=== PATIENT | female | born 1995 | race African-American/Black ===

== ENCOUNTER 2017-02-04 10:46 | Inpatient (IN) ==
[2017-02-04] MEDS ORDERED: ONDANSETRON 4 MG/2 ML VIAL IV PRN ×2 (11:08→16:00)
[2017-02-04] MEDS ORDERED: MEPERIDINE 50 MG/1 ML VIAL IV PRN (11:08)
[2017-02-04] MEDS ORDERED: BUTORPHANOL 2 MG/ML VIAL IV PRN (11:08)
[2017-02-04] MEDS ORDERED: AMPICILLIN INJ 2,000 MG in SODIUM CHLORIDE 0.9% 100 ML IV ONE (11:10)
[2017-02-04] MEDS ORDERED: FAMOTIDINE 20 MG/2 ML VIAL IV ONE (11:11)
[2017-02-04] MEDS ORDERED: hydrOXYzine HCL 25 MG/1 ML VIAL IM PRN (11:11)
[2017-02-04] MEDS ORDERED: ePHEDrine 50 MG/ML AMP IV PRN (11:11)
[2017-02-04] MEDS ORDERED: diphenhydrAMINE 50 MG/1 ML VIAL IV PRN ×2 (11:11)
[2017-02-04] MEDS ORDERED: ONDANSETRON 4 MG/2 ML VIAL IV ONE (11:11)
[2017-02-04] MEDS ORDERED: LACTATED RINGERS 1,000 ML IV ONE (11:11)
[2017-02-04] MEDS ORDERED: PROMETHAZINE 25 MG/1 ML VIAL IM ONE (11:11)
[2017-02-04] MEDS ORDERED: CITRIC ACID/SODIUM CITRATE 30 ML UDCUP PO ONE (11:11)
[2017-02-04 12:01] LABS: Basophils % 0.5 % (0.0-0.8); Eosinophils # 0.1 10*3/uL (0.0-0.87); Eosinophils % 1.3 % (0.00-10.9); Hemoglobin 11.1 GM/DL (12.0-16.0); Immature Granulocytes % 1.4 %; Immature Granulocytes Absolute 0.11 #; Lymphocytes # 1.8 10*3/uL (1.4-4.0); Lymphocytes % 22.8 % (21.3-54.2); Mean Corpuscular HGB Conc 32.6 GM/DL (32-36); Mean Corpuscular Hemoglobin 29 PG (27-34); Mean Corpuscular Volume 89.2 FL (87-102); Mean Platelet Volume 9.4 FL (9.6-12.0); Monocytes # 0.9 10*3/uL (0.11-0.8); Monocytes % 11.1 % (1.7-12.7); Neutrophils # 4.9 10*3/uL (1.4-7.4); Neutrophils % 62.9 % (38.7-73.9); Platelet Count 328 T/CUMM (130-400); Red Blood Count 3.81 MC/CUMM (3.8-5.5); Red Cell Distribution Width 13.8 % (9.3-17.3); White Blood Count 7.8 T/CUMM (4-12)
[2017-02-04] MEDS: OXYTOCIN/LR 20 UNIT/1,000 ML BAG IV SCH (12:30)
[2017-02-04 12:31] LABS: Albumin 2.9 G/DL (3.4-5.0); Bilirubin,Total 0.6 MG/DL (0.2-1.0); Calcium 9.4 MG/DL (8.5-10.1); Osmolality,Calculated 271.5 MOS/KG (273-304); Potassium 3.7 MMOL/L (3.5-5.1); Total Protein 7.2 G/DL (6.4-8.3)
[2017-02-04] MEDS: LACTATED RINGERS 1,000 ML IV SCH ×3 (12:45→20:11)
[2017-02-04] MEDS: fentaNYL 2 MCG/ROPIV 0.2% EPID 150 ML EPIDURAL SCH (12:46)
[2017-02-04] MEDS ORDERED: miSOPROStol 200 MCG TABLET ONE (15:40)
[2017-02-04] MEDS ORDERED: METHYLERGONOVINE 0.2 MG/1 ML AMP ONE (15:40)
[2017-02-04] MEDS ORDERED: BENZOCAINE 20%/MENTHOL 0.5% SPRAY 56 GM CAN TOP PRN (16:00)
[2017-02-04] MEDS ORDERED: BISACODYL 10 MG SUPP RECTAL PRN (16:00)
[2017-02-04] MEDS ORDERED: OXYTOCIN/LR 20 UNIT/1,000 ML BAG IV ONE (16:00)
[2017-02-04] MEDS ORDERED: RHO(D) IMMUNE GLOBULIN 300 MCG SYRINGE IM ONE (16:00)
[2017-02-04] MEDS ORDERED: DIPH/TET/ACEL PERT BOOSTER VACCINE 0.5 ML VIAL IM ONE (16:00)
[2017-02-04] MEDS ORDERED: LANOLIN 50% CREAM 0.3 OZ TUBE TOP PRN (16:00)
[2017-02-04] MEDS ORDERED: ACETAMINOPHEN 325 MG TABLET PO PRN (16:00)
[2017-02-04] MEDS ORDERED: WITCH HAZEL PADS 100/JAR TOP PRN (16:00)
[2017-02-04] MEDS ORDERED: oxyCODONE/ACETAMINOPHEN 5-325 MG TABLET PO PRN ×2 (16:00)
[2017-02-04] MEDS ORDERED: HYDROCORTISONE 2.5% RECTAL CREAM 30 GM TUBE TOP PRN (16:00)
[2017-02-04] MEDS ORDERED: MEASLES/MUMPS/RUBELLA VACCINE 0.5 ML VIAL SUBCUT ONE (16:00)
--- NOTE | 2017-02-04 16:02 | Operative Note ---
Date of procedure: 02/04/17 Procedure Preformed: Patient delivered a liveborn male infant via spontaneous vaginal delivery. Baby 's head was delivered in the DOMENICA position. The baby's nose mouth bulb suctioned the perineum. Anterior posterior shoulders followed by the body was delivered with ease. Status post internal after" was doubly clamped and cut. Cord blood was sent. Placenta was delivered spontaneously and intact with three -vessel cord. The uterus was massaged and was found to confirm a well contracted. The Birthweight [unavailable at time of dictation]. Apgars 9 9. Baby and mother stable. And the procedure all sponge lap counts correct 2. Surgeon / Physician: Teresita Tobin Post-op diagnosis: same Findings: Liveborn male infant Specimens: none sent Estimated blood loss: other (50 mL) Condition: stable Anesthesia: epidural Disposition: floor
--- NOTE | 2017-02-04 16:04 | OB/GYN History & Physical ---
History of Present Illness Chief complaint: Rupture of membranes History of present illness: Ms. Husain is a 21 year old female Primigravida at 38 weeks gestation who presented with spontaneous rupture of membranes. Patient admitted in labor. Home Medications Medication Instructions Recorded Confirmed Type Pnv No.95/Ferrous Fum/Folic AC 1 each PO DAILY 07/27/16 02/04/17 History [ Tablet] Allergies Allergy/AdvReac Type Severity Reaction Status Date / Time No Known Allergies Allergy Verified 02/04/17 11:06 12 point system: reviewed and no additional remarkable complaints except as stated Medical,Surgical,& Family Hx - Social History Smoking Status: Never smoker Frequency of Alcohol Use: None Type of Drug Use: None Exam RN RADIATION - Constitutional General appearance: no acute distress - Head Head exam: Present: normocephalic - ENT ENT exam: Present: normal exam - Neck Neck exam: Present: normal inspection - Respiratory Respiratory exam: Present: clear to auscultation bilaterally - Cardiovascular Cardiovascular exam: Present: regular rate and rhythm - GI/Abdominal GI/Abdominal exam: Present: normal bowel sounds, soft - Extremities Exam Extremities exam: Present: normal inspection - Back Exam Back exam: Present: normal inspection - Neurological Exam Neurological exam: Present: alert, oriented X3 - Psychiatric Psychiatric exam: Present: normal affect, normal mood - Skin Skin exam: Present: normal color, warm Assessment and Plan (1) 38 weeks gestation of Status: Acute Current Visit: Yes (2) Spontaneous rupture of amniotic membranes Status: Acute Assessment and plan: Patient admitted for augmentation of labor with expected vaginal delivery. GBS positive treated with IV antibiotics. Current Visit: Yes Results - Labs CBC & BMP: 02/04/17 11:54 02/04/17 11:54 Quality Measures - VTE Contraindication to Pharmacological VTE Prophylaxis: Clinical assessment deems Pt at low risk, no prophalaxis needed
[2017-02-04] MEDS: AMPICILLIN INJ 1,000 MG in SODIUM CHLORIDE 0.9% 100 ML IV SCH ×2 (17:46→19:11)
[2017-02-04] MEDS: IBUPROFEN 800 MG TABLET PO PRN (20:10)
[2017-02-04] MEDS: DOCUSATE SODIUM 100 MG CAPSULE PO SCH (20:10)
[2017-02-05] MEDS: LACTATED RINGERS 1,000 ML IV SCH (06:05)
[2017-02-05 06:40] LABS: Basophils # 0.1 10*3/uL (0.0-0.2); Basophils % 0.4 % (0.0-0.8); Eosinophils # 0.2 10*3/uL (0.0-0.87); Eosinophils % 1.2 % (0.00-10.9); Hematocrit 28.2 VOL% (35.7-47.0); Hemoglobin 9.3 GM/DL (12.0-16.0); Immature Granulocytes % 0.7 %; Immature Granulocytes Absolute 0.09 #; Lymphocytes # 2.2 10*3/uL (1.4-4.0); Lymphocytes % 18.3 % (21.3-54.2); Mean Corpuscular Hemoglobin 29 PG (27-34); Mean Corpuscular Volume 87.3 FL (87-102); Mean Platelet Volume 9.5 FL (9.6-12.0); Monocytes # 1.3 10*3/uL (0.11-0.8); Monocytes % 10.6 % (1.7-12.7); Neutrophils # 8.3 10*3/uL (1.4-7.4); Neutrophils % 68.8 % (38.7-73.9); Platelet Count 266 T/CUMM (130-400); Red Blood Count 3.23 MC/CUMM (3.8-5.5); Red Cell Distribution Width 13.7 % (9.3-17.3); White Blood Count 12.1 T/CUMM (4-12)
[2017-02-05] MEDS: DOCUSATE SODIUM 100 MG CAPSULE PO SCH ×2 (09:30→21:49)
--- NOTE | 2017-02-05 10:23 | OB/GYN Progress Note ---
Assessment and Plan (1) 38 weeks gestation of Status: Acute Current Visit: Yes (2) Spontaneous rupture of amniotic membranes Status: Acute Assessment and plan: Patient admitted for augmentation of labor with expected vaginal delivery. GBS positive treated with IV antibiotics. Current Visit: Yes (3) Vaginal delivery Status: Acute Assessment and plan: Routine care with discharge planning in a.m. Current Visit: Yes REHABILITATION THERAPIST - PN: Subj Interval history: No complaints. Patient is both bottle and trying to breast-feed. She plans for a long-term method of contraception but is unsure if the exact choice at this time Exam REHABILITATION THERAPIST - Constitutional Vitals: Vital Signs Temp Pulse Resp BP Pulse Ox 02/05/17 10:00 18 02/05/17 09:00 18 02/05/17 08:00 18 02/05/17 07:35 98 F 77 18 122/69 99 02/05/17 06:48 20 02/05/17 06:00 20 02/05/17 05:00 20 02/05/17 04:00 99.4 F 83 18 117/65 100 02/05/17 03:00 20 02/05/17 02:00 20 02/05/17 01:00 18 02/05/17 00:00 97.6 F 90 18 132/61 99 02/04/17 23:00 18 02/04/17 20:00 97.6 F 73 18 109/57 96 02/04/17 18:15 96.2 F L 67 20 120/64 02/04/17 16:00 98.2 F 84 20 121/56 02/04/17 12:00 98.4 F 74 20 131/70 100 General appearance: no acute distress - Antepartum / Post Post Exam Abdomen obstetrics: Present: bowel sounds normal Vagina: Present: normal moisture Uterus exam: Present: normal size, normal contour Anus/Rectum: Present: normal perianal skin, heme negative - Head Head exam: Present: normocephalic - Neck Neck exam: Present: normal inspection - Respiratory Respiratory exam: Present: clear to auscultation bilaterally - Cardiovascular Cardiovascular exam: Present: regular rate and rhythm - GI/Abdominal GI/Abdominal exam: Present: soft - Extremities Exam Extremities exam: Present: normal inspection - Back Exam Back exam: Present: normal inspection - Neurological Exam Neurological exam: Present: alert, oriented X3 - Psychiatric Psychiatric exam: Present: normal affect, normal mood - Skin Skin exam: Present: normal color, warm Results - Labs CBC & BMP: 02/05/17 05:39 02/04/17 11:54
--- NOTE | 2017-02-05 10:25 | Discharge Summary ---
Hospital Course - Hospital Course Hospital Course: This is a 21-year-old primigravida at 38 weeks gestation who presented with spontaneous rupture membranes in active labor. Patient subsequently delivered a liveborn male infant via spontaneous vaginal delivery. Hospital course unremarkable by day #2 she was ready for discharge Diagnosis - Discharge Diagnosis (1) 38 weeks gestation of Status: Acute (2) Spontaneous rupture of amniotic membranes Status: Acute (3) Vaginal delivery Status: Acute Specialty Discharge - Follow Up or Referrals Follow up with: Teresita Tobin MD [Physician] - 03/06/17 9:30 am Discharge Plan - Discharge Data Disposition: Disch To Home/Self Care Condition at Discharge: Stable Discharge Diet: advance to your usual diet Activity: resume usual activities as tolerated, other (Pelvic rest) Hygiene: no restrictions Weight Bearing at Discharge: weight bear as tolerated Driving: no restrictions Contact your physician if you experience:: fever over 101, Difficulty voiding, Redness or swelling, Nausea/Vomiting, Shortness of breath, Bleeding, pain uncontrolled by pain medications - Discharge Medications New Ibuprofen Tab [Motrin Tab] 800 mg PO Q6H PRN #30 tablet PRN Reason: Pain Moderate (4-7) No Action Pnv No.95/Ferrous Fum/Folic AC [ Tablet] 1 each PO DAILY - Follow Up or Referral Follow Up: Teresita Tobin MD [Physician] - 03/06/17 9:30 am - Forms/Instructions Exam - Constitutional Vitals: Period Temp Pulse Resp BP Sys/Ortega Pulse Ox Last 24 Hr 96.2 F-99.4 F 67-90 18-20 109-132/56-70 96-100 General appearance: no acute distress - Head Head exam: Present: normocephalic - ENT ENT exam: Present: normal exam - Neck Neck exam: Present: normal inspection - Respiratory Respiratory exam: Present: clear to auscultation bilaterally - Cardiovascular Cardiovascular exam: Present: regular rate and rhythm - GI/Abdominal GI/Abdominal exam: Present: normal bowel sounds, soft - Extremities Exam Extremities exam: Present: normal inspection - Back Exam Back exam: Present: normal inspection - Neurological Exam Neurological exam: Present: alert, oriented X3 - Psychiatric Psychiatric exam: Present: normal affect, normal mood - Skin Skin exam: Present: normal color, warm Discharge Results Labs on day of discharge: Labs from last 24 hours 08/02/04/17 02/04/17 05:39 11:54 11:54 WBC 12.1 H D RBC 3.23 L Hgb 9.3 L Hct 28.2 L MCV 87.3 MCH 29 MCHC 33.0 RDW 13.7 Plt Count 266 MPV 9.5 L Neut % (Auto) 68.8 Lymph % (Auto) 18.3 L Storey % (Auto) 10.6 Eos % (Auto) 1.2 Baso % (Auto) 0.4 Neut # (Auto) 8.3 H Lymph # (Auto) 2.2 Storey # (Auto) 1.3 H Eos # (Auto) 0.2 Baso # (Auto) 0.1 Immature Gran % 0.7 Nucleated RBC % 0.0 Immature Gran # 0.09 Nucleated RBCs # 0.00 Immature Plt Fraction 0.0 Sodium 139 Potassium 3.7 Chloride 106 Carbon Dioxide 26 Anion Gap 10.7 BUN 5 L Creatinine 0.70 GFR Calculation 149 BUN/Creatinine Ratio 7.00 Glucose 64 L Calculated Osmolality 271.5 L Calcium 9.4 Total Bilirubin 0.60 AST 17 ALT 17 Alkaline Phosphatase 181 H Total Protein 7.2 Albumin 2.9 L Globulin 4.3 H Albumin/Globulin Ratio 0.6 L Blood Type O POSITIVE Antibody Screen Negative 02/04/17 11:54 WBC 7.8 RBC 3.81 Hgb 11.1 L Hct 34.0 L MCV 89.2 MCH 29 MCHC 32.6 RDW 13.8 Plt Count 328 MPV 9.4 L Neut % (Auto) 62.9 Lymph % (Auto) 22.8 Storey % (Auto) 11.1 Eos % (Auto) 1.3 Baso % (Auto) 0.5 Neut # (Auto) 4.9 Lymph # (Auto) 1.8 Storey # (Auto) 0.9 H Eos # (Auto) 0.1 Baso # (Auto) 0.0 Immature Gran % 1.4 Nucleated RBC % 0.0 Immature Gran # 0.11 Nucleated RBCs # 0.00 Immature Plt Fraction 0.0 Sodium Potassium Chloride Carbon Dioxide Anion Gap BUN Creatinine GFR Calculation BUN/Creatinine Ratio Glucose Calculated Osmolality Calcium Total Bilirubin AST ALT Alkaline Phosphatase Total Protein Albumin Globulin Albumin/Globulin Ratio Blood Type Antibody Screen DS: Provider Date of admission: 02/04/17 10:47 Primary care physician: . No PCP Attending physician on admission: Teresita Tobin MD Consults: 02/04/17 11:08 Consult to Anesthesiology [CONS] Routine Consulting Provider: Reason for Anesthesiology: Epidural Consult Comment: Epidural for pain managment 02/04/17 16:00 Consult to Building Rental Superintendent [CONS] Routine Consult Building Rental Superintendent: Breast Feeding Discharging clinician: Teresita Tobin MD
[2017-02-06] MEDS: IBUPROFEN 800 MG TABLET PO PRN (04:10)
[2017-02-06] MEDS: OXYTOCIN/LR 20 UNIT/1,000 ML BAG IV SCH (04:34)
[2017-02-06] MEDS: fentaNYL 2 MCG/ROPIV 0.2% EPID 150 ML EPIDURAL SCH (04:34)
[2017-02-06] MEDS: AMPICILLIN INJ 1,000 MG in SODIUM CHLORIDE 0.9% 100 ML IV SCH ×3 (04:34→04:38)
[2017-02-06] MEDS: LACTATED RINGERS 1,000 ML IV SCH ×2 (04:34→04:38)
--- NOTE | 2017-02-06 07:09 | Anesthesia Post-Op ---
Anesthesia Post OP - Post Ansesthetic Evaluation Patient seen in post op: Yes Resp: within normal limits CV: within normal limits Mental: within normal limits Temp: within normal limits [id number]: within normal limits Nausea and Vomiting: within normal limits Pain: within normal limits
[2017-02-06 07:35] VITALS: BP 117/53
[2017-02-06] MEDS: DOCUSATE SODIUM 100 MG CAPSULE PO SCH (09:31)
== END 2017-02-06 11:10 | disposition home or self-care (01) | DRG 560 ==
LOC: N.LDOUT 10:46 → N.LD 10:47 → N.OB 18:02
PROVIDERS: ADMIT Obstetrics & Gynecology; ATTEND Obstetrics & Gynecology

== ENCOUNTER 2019-01-13 00:37 | Inpatient (IN) ==
[2019-01-13] MEDS ORDERED: ONDANSETRON 4 MG/2 ML VIAL IV PRN ×2 (00:50→04:11)
[2019-01-13] MEDS ORDERED: MEPERIDINE 50 MG/1 ML VIAL IV PRN (00:50)
[2019-01-13] MEDS ORDERED: diphenhydrAMINE 50 MG/1 ML VIAL IV PRN (00:53)
[2019-01-13] MEDS ORDERED: hydrOXYzine HCL 25 MG/1 ML VIAL IM PRN (00:53)
[2019-01-13] MEDS ORDERED: CITRIC ACID/SODIUM CITRATE 30 ML UDCUP PO ONE (00:53)
[2019-01-13] MEDS ORDERED: FAMOTIDINE 20 MG/2 ML VIAL IV ONE (00:53)
[2019-01-13] MEDS ORDERED: NALOXONE 0.4 MG/ML VIAL IV PRN (00:53)
[2019-01-13] MEDS ORDERED: PROMETHAZINE 25 MG/1 ML VIAL IM PRN (00:53)
[2019-01-13] MEDS ORDERED: ePHEDrine 50 MG/ML AMP IV PRN (00:53)
[2019-01-13] MEDS ORDERED: LACTATED RINGERS 1,000 ML IV ONE (00:53)
[2019-01-13] MEDS ORDERED: fentaNYL 2 MCG/ROPIV 0.2% EPID 100 ML EPIDURAL SCH (01:00)
[2019-01-13] MEDS ORDERED: LACTATED RINGERS 1,000 ML IV SCH (01:00)
[2019-01-13 01:33] LABS: Basophils % 0.4 % (0.0-0.8); Eosinophils # 0.1 10*3/uL (0.0-0.87); Eosinophils % 0.7 % (0.00-10.9); Hematocrit 30.2 VOL% (35.7-47.0); Hemoglobin 9.4 GM/DL (12.0-16.0); Immature Granulocytes % 0.6 %; Immature Granulocytes Absolute 0.05 #; Lymphocytes % 23.5 % (21.3-54.2); Mean Corpuscular HGB Conc 31.1 GM/DL (32-36); Mean Corpuscular Volume 84.6 FL (87-102); Mean Platelet Volume 9.3 FL (9.6-12.0); Monocytes % 9.9 % (1.7-12.7); Neutrophils % 64.9 % (38.7-73.9); Platelet Count 323 T/CUMM (130-400); Red Blood Count 3.57 MC/CUMM (3.8-5.5); White Blood Count 8.6 T/CUMM (4-12)
[2019-01-13] MEDS ORDERED: miSOPROStol 200 MCG TABLET ONE (03:05)
[2019-01-13] MEDS ORDERED: OXYTOCIN/LR 20 UNIT/1,000 ML BAG IV ONE ×3 (03:05→06:40)
[2019-01-13] MEDS ORDERED: METHYLERGONOVINE 0.2 MG/1 ML AMP ONE (03:06)
[2019-01-13] MEDS ORDERED: CARBOPROST TROMETHAMINE 250 MCG/ML AMP IM ONE (03:06)
[2019-01-13 03:37] LABS: Apearance,Urine CLOUDY (Clear); Bilirubin,Urine Negative (Negative); Blood, Urine Negative (Negative); Glucose,Urine (UA) Negative (Negative); Ketones,Urine Negative (Negative); Mucus,Urine Occasional /LPF (Occasional); Nitrite,Urine Negative (Negative); Protein,Urine Negative; Squamous Epithelial Cell,Urine Occasional /HPF (0-10); Urine Color Yellow (Yellow); Urine Specific Gravity 1.012 (1.001-1.035); Urine Urobilinogen < 2.0 EU/DL (0.2-1.0)
[2019-01-13] MEDS ORDERED: ACETAMINOPHEN 325 MG TABLET PO PRN (04:11)
[2019-01-13] MEDS ORDERED: MAGNESIUM HYDROXIDE SUSP 30 ML UDCUP PO PRN (04:11)
[2019-01-13] MEDS ORDERED: BISACODYL 10 MG SUPP RECTAL PRN (04:11)
[2019-01-13] MEDS ORDERED: KETOROLAC 15 MG/1 ML VIAL IV SCH (07:00)
[2019-01-13] MEDS ORDERED: IBUPROFEN 800 MG TABLET PO ONE (07:13)
[2019-01-13] MEDS: DOCUSATE SODIUM 100 MG CAPSULE PO SCH ×3 (09:34→21:44)
[2019-01-13] MEDS: MULTIVITAMIN (PRENATAL) TABLET PO SCH (09:35)
[2019-01-13] MEDS ORDERED: IBUPROFEN 800 MG TABLET ONE (11:39)
[2019-01-13] MEDS: IBUPROFEN 800 MG TABLET PO PRN ×2 (11:59→19:24)
[2019-01-14] MEDS: IBUPROFEN 800 MG TABLET PO PRN (05:03)
[2019-01-14 06:33] LABS: Basophils % 0.3 % (0.0-0.8); Eosinophils # 0.2 10*3/uL (0.0-0.87); Eosinophils % 1.3 % (0.00-10.9); Hematocrit 29.5 VOL% (35.7-47.0); Hemoglobin 9.1 GM/DL (12.0-16.0); Immature Granulocytes Absolute 0.12 #; Lymphocytes # 1.3 10*3/uL (1.4-4.0); Lymphocytes % 11.2 % (21.3-54.2); Mean Corpuscular HGB Conc 30.8 GM/DL (32-36); Mean Corpuscular Volume 83.8 FL (87-102); Mean Platelet Volume 9.2 FL (9.6-12.0); Monocytes % 8.1 % (1.7-12.7); Neutrophils % 78.1 % (38.7-73.9); Platelet Count 283 T/CUMM (130-400); Red Blood Count 3.52 MC/CUMM (3.8-5.5); Red Cell Distribution Width 16.2 % (9.3-17.3); White Blood Count 11.9 T/CUMM (4-12)
[2019-01-14] MEDS ORDERED: IBUPROFEN 800 MG TABLET PO PRN ×3 (07:00→11:32)
[2019-01-14 07:21] VITALS: BP 121/66
[2019-01-14] MEDS: MULTIVITAMIN (PRENATAL) TABLET PO SCH ×2 (07:57→10:58)
[2019-01-14] MEDS: DOCUSATE SODIUM 100 MG CAPSULE PO SCH ×2 (07:58→10:58)
[2019-01-14] MEDS ORDERED: ACETAMINOPHEN 500 MG TABLET ONE (07:59)
[2019-01-14] MEDS ORDERED: ACETAMINOPHEN 500 MG TABLET PO PRN (08:30)
== END 2019-01-14 16:05 | disposition home or self-care (01) | DRG 560 ==
LOC: N.LDOUT 00:37 → N.LD 00:38 → N.OB 08:09
PROVIDERS: ADMIT Obstetrics & Gynecology; ATTEND Obstetrics & Gynecology